=== PATIENT | female | born 1955 | race Caucasian/White ===

== ENCOUNTER → 2017-04-23 | Outpatient (CLI) | payer MEDICARE, OTHER ==
--- NOTE | 2017-04-23 10:17 | KCIC ---
MR of the left hip HISTORY: Chronic left hip pain. Instability. TECHNIQUE: Routine multiplanar sequences are obtained. FINDINGS: No bone lesion. No acute fracture. No evidence of femoral head osteonecrosis. No significant joint effusion. Mild left hip chondromalacia. Abnormal signal within the acetabular labrum, particularly superiorly, compatible with a degenerative tear. Minimal tendinosis signal in the left gluteus minimus tendon insertion. Left gluteus medius tendon intact Hamstring and iliopsoas attachment intact. Rectus femoris tendon attachment intact. No acute muscle pathology. Diagnostically limited large field of view coronal survey sequence demonstrates no acute findings of the contralateral hip. Incidentally noted is colonic diverticulosis. IMPRESSION: 1. Left hip labrum tear. 2. Mild left hip primary osteoarthritis. 3. Minimal left gluteus minimus tendinosis. Electronically signed by: Chilo Gomez MD (04/23/2017 10:13 AM)
== END | disposition home or self-care (01) ==
LOC: KCIC MRI 08:58
PROVIDERS: ATTEND Nurse Practitioner Family
DX: M16.12 Unilateral primary osteoarthritis, left hip (principal); M76.9 Unspecified enthesopathy, lower limb, excluding foot; S73.102A Unspecified sprain of left hip, initial encounter; X58.XXXA Exposure to other specified factors, initial encounter; Y93.89 Activity, other specified; Y92.89 Other specified places as the place of occurrence of the external cause; Y99.8 Other external cause status
CPT/HCPCS: 73721

== ENCOUNTER 2019-07-11 20:24 | Inpatient (IN) | payer MEDICAID, MEDICARE ==
[2019-07-11 20:30] VITALS: BP 167/83
[2019-07-11] MEDS ORDERED: IV NORMAL SALINE 1000ML BAG 1,000 ML IV SCH (22:30)
[2019-07-11] MEDS ORDERED: IOHEXOL 350 MG/ML 100 ML VIAL. IV ONE (23:15)
[2019-07-11] MEDS ORDERED: CONTRAST GIVEN. MC PRN (23:15)
[2019-07-11] MEDS ORDERED: EZET10TA20 PO (23:39)
[2019-07-11] MEDS ORDERED: GABA300C18 PO (23:39)
[2019-07-11] MEDS ORDERED: POTA8CAP19 PO (23:39)
[2019-07-11] MEDS ORDERED: ESTR1TAB15 PO (23:40)
[2019-07-11] MEDS ORDERED: ALEN70TA6 PO (23:40)
[2019-07-11 23:44] VITALS: BP 157/83
[2019-07-11] MEDS ORDERED: MELO7.5T29 PO (23:44)
[2019-07-11] MEDS ORDERED: HYDR-2765 PO (23:44)
[2019-07-11] MEDS ORDERED: CYCL10TA2 PO (23:44)
[2019-07-11] MEDS ORDERED: PRIM50TA24 PO (23:44)
[2019-07-11] MEDS ORDERED: LOSA-73 PO (23:44)
[2019-07-11] MEDS ORDERED: DIAZ5TAB4 PO (23:44)
[2019-07-11] MEDS ORDERED: PANT20TA2 PO (23:44)
[2019-07-11] MEDS ORDERED: LEVO100T5 PO (23:44)
[2019-07-11] MEDS ORDERED: HYDROcodone/APAP 7.5/325MG 1 TAB TABLET PO PRN (23:45)
[2019-07-11] MEDS ORDERED: diazePAM 5 MG TABLET PO PRN (23:45)
[2019-07-11] MEDS ORDERED: CYCLOBENZAPRINE 10 MG TABLET. PO PRN (23:45)
[2019-07-11] MEDS ORDERED: LATA2.5D3 OU (23:45)
--- NOTE | 2019-07-12 00:30 | RAD ---
EXAM: CT ANGIOGRAPHY HEAD AND NECK DATE: 07/11/2019 12:00 AM INDICATION: CVA/TIA TECHNIQUE: CTA angiogram of the head and neck was obtained after IV bolus administration of 75 cc of Omnipaque 350. The images were sent to workstation and multiplanar reconstructions were obtained. Multiplanar reconstruction images to include MIP and 3-D reconstruction images are submitted. One or more of the following dose reduction techniques were utilized: Automated exposure control (AEC), Adjustment of mA and/or kV according to patient size, Use of iterative reconstruction technique such as ASiR, CT scan done according to ALARA and image gently/image wisely COMPARISON: Noncontrast CT head done earlier same day. FINDINGS: CTA Head: Occlusion of the vertebrobasilar junction. There is collateral filling of the distal basilar artery via small P1 segments. Bilateral devulcanizer tender. The visualized distal internal carotid arteries, anterior and middle cerebral arteries are patent and normal caliber. The posterior cerebral arteries are patent and normal caliber. CTA Neck: Right carotid: The right common carotid artery is patent and normal caliber. Atherosclerosis of the carotid bifurcation. 50 percent stenosis of the right internal carotid artery per NASCET criteria. The right external carotid artery is patent. Left carotid: The left common carotid artery is patent and normal caliber. Atherosclerosis of the carotid bifurcation. 25 percent stenosis of the left internal carotid artery per NASCET criteria. The left external carotid artery is patent. Right vertebral: The cervical right vertebral artery is patent and normal caliber. Left vertebral: The cervical left vertebral artery is patent and normal caliber. The visualized portions of the aortic arch are normal. The origins of the brachiocephalic and subclavian arteries are normal. No cervical lymphadenopathy. The thyroid gland is normal. The parotid and submandibular glands are normal. The visualized aerodigestive tract is unremarkable. Mild multilevel degenerative disc height loss. Multilevel disc protrusions and marginal osteophytes results in multilevel spinal canal stenosis. Multilevel uncovertebral and facet arthrosis with multilevel neural foraminal narrowing. Centrilobular emphysema in the visualized lung apices. Right apical subpleural fibrosis. IMPRESSION: 1. Occlusion of the vertebrobasilar junction. There is some collateral filling of the distal basilar artery via diminutive P1 segments. Bilateral devulcanizer tender. 2. Atherosclerosis of the cervical internal carotid arteries with 50 percent stenosis on the right 25 percent stenosis on the left. Findings were called to the patient's nurse at 12:20 AM on 07/12/2019. FOR INTERNAL CODING PURPOSES RESULT CODE: (C) PQRS Compliance Statement - Stenosis calculations for CT, MR and conventional angiography are based upon measurement of the distal ICA diameter in accordance with the NASCET methodology. Electronically signed by: Farrukh Ty MD (07/12/2019 12:26 AM) [facility]
[2019-07-12] MEDS ORDERED: ACETAMINOPHEN 650 MG SUPP.RECT. PR PRN (01:30)
--- NOTE | 2019-07-12 01:40 | PDOC1 ---
History and Physical Date of Admission Date of Admission DATE: 07/12/19 TIME: 01:36 Identification/Chief Complaint Chief Complaint ACUTE CVA, TRANSFER FROM [facility] ADMIT TO [address] [place] [address] D/W DR HUSTON BY PHONE Past Medical History Cardiovascular: HTN Social History Smoke: <1 pack per day Drugs: None Current Medications Current Medications Current Medications Sodium Chloride 1,000 ml @ 80 mls/hr [id number] IV Last administered on 07/11/19at 23:55; Start 07/11/19 at 22:30 Aspirin (Wilma Aspirin) 325 mg DAILYWBKFT PO ; Start 07/12/19 at 08:00 Iohexol (Omnipaque 350 Mg/ml) 75 ml 1X ONCE IV Last administered on 07/11/19at 23:33; Start 07/11/19 at 23:15; Stop 07/11/19 at 23:16; Status DC Info (CONTRAST GIVEN -- Rx MONITORING) 1 each PRN DAILY PRN MC SEE COMMENTS; Start 07/11/19 at 23:15; Stop 07/13/19 at 23:14 Cyclobenzaprine HCl (Flexeril) 10 mg PRN TID PRN PO MUSCLE PAIN; Start 07/11/19 at 23:45 Diazepam (Valium) 5 mg PRN BID PRN PO ANXIETY / AGITATION; Start 07/11/19 at 23:45 Estradiol (Estrace) 1 mg DAILY PO ; Start 07/12/19 at 09:00 EZETIMIBE (Zetia) 10 mg DAILY PO ; Start 07/12/19 at 09:00 Gabapentin (Neurontin) 300 mg TID PO ; Start 07/12/19 at 09:00 Acetaminophen/ Hydrocodone Bitart (Lortab 7.5/325) 1 tab PRN Q8HRS PRN PO PAIN; Start 07/11/19 at 23:45 Latanoprost (Xalatan) 1 drop QHS OU ; Start 07/12/19 at 21:00 Losartan Potassium (Cozaar) 50 mg DAILY PO ; Start 07/12/19 at 09:00 Meloxicam (Mobic) 7.5 mg BID PO ; Start 07/12/19 at 09:00 Primidone (Mysoline) 100 mg TID PO ; Start 07/12/19 at 09:00 Non-Formulary Medication (Alendronate Sodium ) 1 tab WEEKLY PO ; Start 07/18/19 at 09:00; Status UNV Pantoprazole Sodium (Protonix) 40 mg DAILYAC PO ; Start 07/12/19 at 07:30 Levothyroxine Sodium (Synthroid) 100 mcg DAILY06 PO ; Start 07/12/19 at 06:00 Non-Formulary Medication (Potassium Chloride ) 8 meq TID PO ; Start 07/12/19 at 09:00; Status UNV Acetaminophen (Tylenol Supp) 650 mg PRN Q6HRS PRN [place] MILD PAIN / TEMP; Start 07/12/19 at 01:30; Status UNV Active Scripts Active Reported Latanoprost 2.5 Ml Drops 1 Drop OU QHS Levothyroxine Sodium 100 Mcg Tablet 1 Tab PO DAILY Meloxicam 7.5 Mg Tablet 7.5 Mg PO BID Cyclobenzaprine Hcl 10 Mg Tablet 1 Tab PO PRN TID PRN Diazepam 5 Mg Tablet 5 Mg PO PRN BID PRN Hydrocodone-Apap 7.5-325 (Hydrocodone Bit/Acetaminophen) 1 Tab Tablet 1 Tab PO PRN Q8HRS PRN Losartan Potassium 50 Mg Tablet 50 Mg PO DAILY Protonix (Pantoprazole Sodium) 20 Mg Tablet.dr 2 Tab PO DAILY Mysoline (Primidone) 50 Mg Tablet 100 Mg PO TID Alendronate Sodium 70 Mg Tablet 1 Tab PO WEEKLY Estradiol 1 Mg Tablet 1 Tab PO DAILY Gabapentin (Gabapentin) 300 Mg Capsule 300 Mg PO TID Zetia (Ezetimibe) 10 Mg Tablet 1 Tab PO DAILY Potassium Chloride 8 Meq Capsule.er 8 Meq PO TID Allergies Allergies: Coded Allergies: Beta-Blockers (Beta-Adrenergic Bloc (Verified Allergy, Intermediate, Unknown, 07/11/19) Penicillins (Verified Allergy, Intermediate, Unknown, 07/11/19) alprazolam (Verified Allergy, Intermediate, Unknown, 07/11/19) atorvastatin (Verified Allergy, Intermediate, Unknown, 07/11/19) fluticasone (Verified Allergy, Intermediate, 07/11/19) metoclopramide (Verified Allergy, Intermediate, Unknown, 07/11/19) orange juice (Verified Allergy, Intermediate, 07/11/19) propranolol (Verified Allergy, Intermediate, 07/11/19) rosuvastatin (Verified Allergy, Intermediate, 07/11/19) tramadol (Verified Allergy, Intermediate, 07/11/19) Vitals Vitals Vital Signs Date Time Temp Pulse Resp B/P (MAP) Pulse Ox O2 Delivery O2 Flow Rate FiO2 07/11/19 23:44 98.2 82 18 157/83 (107) 96 Room Air 98.2 Images Images PROCEDURE: CT ANGIOGRAPHY HEAD AND NECK EXAM: CT ANGIOGRAPHY HEAD AND NECK DATE: 07/11/2019 12:00 AM INDICATION: CVA/TIA TECHNIQUE: CTA angiogram of the head and neck was obtained after IV bolus administration of 75 cc of Omnipaque 350. The images were sent to workstation and multiplanar reconstructions were obtained. Multiplanar reconstruction images to include MIP and 3-D reconstruction images are submitted. One or more of the following dose reduction techniques were utilized: Automated exposure control (AEC), Adjustment of mA and/or kV according to patient size, Use of iterative reconstruction technique such as ASiR, CT scan done according to ALARA and image gently/image wisely COMPARISON: Noncontrast CT head done earlier same day. FINDINGS: CTA Head: Occlusion of the vertebrobasilar junction. There is collateral filling of the distal basilar artery via small P1 segments. Bilateral rivet thrower. The visualized distal internal carotid arteries, anterior and middle cerebral arteries are patent and normal caliber. The posterior cerebral arteries are patent and normal caliber. CTA Neck: Right carotid: The right common carotid artery is patent and normal caliber. Atherosclerosis of the carotid bifurcation. 50 percent stenosis of the right internal carotid artery per NASCET criteria. The right external carotid artery is patent. Left carotid: The left common carotid artery is patent and normal caliber. Atherosclerosis of the carotid bifurcation. 25 percent stenosis of the left internal carotid artery per NASCET criteria. The left external carotid artery is patent. Right vertebral: The cervical right vertebral artery is patent and normal caliber. Left vertebral: The cervical left vertebral artery is patent and normal caliber. The visualized portions of the aortic arch are normal. The origins of the brachiocephalic and subclavian arteries are normal. No cervical lymphadenopathy. The thyroid gland is normal. The parotid and submandibular glands are normal. The visualized aerodigestive tract is unremarkable. Mild multilevel degenerative disc height loss. Multilevel disc protrusions and marginal osteophytes results in multilevel spinal canal stenosis. Multilevel uncovertebral and facet arthrosis with multilevel neural foraminal narrowing. Centrilobular emphysema in the visualized lung apices. Right apical subpleural fibrosis. IMPRESSION: 1. Occlusion of the vertebrobasilar junction. There is some collateral filling of the distal basilar artery via diminutive P1 segments. Bilateral rivet thrower. 2. Atherosclerosis of the cervical internal carotid arteries with 50 percent stenosis on the right 25 percent stenosis on the left. Findings were called to the patient's nurse at 12:20 AM on 07/12/2019. FOR INTERNAL CODING PURPOSES RESULT CODE: (C) PQRS Compliance Statement - Stenosis calculations for CT, MR and conventional angiography are based upon measurement of the distal ICA diameter in accordance with the NASCET methodology. Electronically signed by: Lyle Ty MD (07/12/2019 12:26 AM) [facility] DICTATED and SIGNED BY: LYLE TY MD DATE: 07/12/19 0026 VTE Prophylaxis Ordered VTE Prophylaxis Devices: No VTE Pharmacological Prophylaxi: Yes Assessment/Plan Assessment/Plan IMPRESSION: CTA 1. Occlusion of the vertebrobasilar junction. There is some collateral filling of the distal basilar artery via diminutive P1 segments. Bilateral rivet thrower. 2. Atherosclerosis of the cervical internal carotid arteries with 50 percent stenosis on the right 25 percent stenosis on the left. 3. HYPERTENSION 4. COPD PLAN EMERGENT TRANSFER TO [facility] NOW PER DR PENNY UPLOAD FILMS TO CLOUD ACCEPTING NEUROLOGIST IS DR MARTINEZ D/W FLOOR NURSE AT 2 AM Level of consciousness * Alert Ask patient the month and their age * Answers both correctly Ask patient to open and close their eyes * Obeys both correctly Best gaze (horizontal eye movement only) * Normal Visual field testing * No visual field loss Facial paresis (ask to show teeth/raise eyebrows/close eyes) * Minor paralysis Limb ataxia * Present in one limb Sensory (use pinprick to test arms/legs/truck and face) * Mild decreased sensation Best language (describe picture, name items, read sentences) * No aphasia Dysarthria * Normal articulation Extinction and inattention * Normal Left arm motor function * No effort agnst gravity Right arm motor function * Normal Left leg motor function * No effort agnst gravity Right leg motor function * Normal Total NIHSS Score * 9 MD Notified * Yes Name of MD notified * DR. PENNY Initiate Stroke Education * Yes RACHELL JUNG MD Jul 12, 2019 01:40
--- NOTE | 2019-07-12 03:00 | NUR ---
Received pt at 2014 via ems from [place], pt laying in bed, families at bedside, noticed facial drooping on the left side, and L sided weakness, called admitting dept and notified Dr. Arriaga regarding pt's arrival, received order to do MRI and MRA of the head stat at 2053 and placed consult neuro. Called Neurologist and talked to Dr. Olivares, received order to transfer pt to med when results came back with any blockages. Ct/MRI staff called this nurse and asked Dr. Olivares's number to ask if they can do MRI in the morning, [facility] called me back and told me that Dr. Olivares agreed to do CTA head and neck stat and MRI brain in AM. 6 ordered CTA placed by Catie, CTA head and neck done at 0000, received result at 0020 via phone call, called die casting supervisor notified the need to transfer pt to , called transferring service around 0030, called Dr. Olivares and Dr. Arriaga at around 0045. Received bed # from at 0154, gave report to nurse Sunni at 0157. Called EMS and transferred pt at 0230.
[2019-07-12] MEDS ORDERED: LEVOTHYROXINE 100 MCG TABLET PO SCH (06:00)
[2019-07-12] MEDS ORDERED: PANTOPRAZOLE 40 MG TABLET.DR. PO SCH (07:30)
[2019-07-12] MEDS ORDERED: ASPIRIN 325 MG TABLET PO SCH (08:00)
[2019-07-12] MEDS ORDERED: LOSARTAN POTASSIUM 50 MG TABLET. PO SCH (09:00)
[2019-07-12] MEDS ORDERED: GABAPENTIN 300 MG CAPSULE. PO SCH (09:00)
[2019-07-12] MEDS ORDERED: EZETIMIBE 10 MG TABLET. PO SCH (09:00)
[2019-07-12] MEDS ORDERED: MELOXICAM 7.5 MG TABLET PO SCH (09:00)
[2019-07-12] MEDS ORDERED: PRIMIDONE 50 MG TABLET PO SCH (09:00)
[2019-07-12] MEDS ORDERED: ESTRADIOL 1 MG TABLET. PO SCH (09:00)
[2019-07-12] MEDS ORDERED: POTASSIUM CHLORIDE 8 MEQ PO SCH (09:00)
[2019-07-12] MEDS ORDERED: LATANOPROST 0.005% OPHTH SOLUTION 2.5ML BOTTLE. OU SCH (21:00)
--- NOTE | 2019-07-17 15:31 | PDOC3 ---
Discharge Summary Date of Admission: Jul 12, 2019 Date of Discharge: Jul 12, 2019 Follow-Up: 1-2 days, By telephone Admitting Diagnosis comment: VTE Prophylaxis Ordered VTE Prophylaxis Devices: No VTE Pharmacological Prophylaxi: Yes discharge dx Assessment/Plan IMPRESSION: CTA 1. Occlusion of the vertebrobasilar junction. There is some collateral filling of the distal basilar artery via diminutive P1 segments. Bilateral cashier associate. 2. Atherosclerosis of the cervical internal carotid arteries with 50 percent stenosis on the right 25 percent stenosis on the left. 3. HYPERTENSION 4. COPD PLAN EMERGENT TRANSFER TO [facility] NOW PER DR PENNY UPLOAD FILMS TO CLOUD ACCEPTING NEUROLOGIST IS DR MARTINEZ discussed with her by phone D/W FLOOR NURSE AT 2 AM Level of consciousness * Alert Ask patient the month and their age * Answers both correctly Ask patient to open and close their eyes * Obeys both correctly Best gaze (horizontal eye movement only) * Normal Visual field testing * No visual field loss Facial paresis (ask to show teeth/raise eyebrows/close eyes) * Minor paralysis Limb ataxia * Present in one limb Sensory (use pinprick to test arms/legs/truck and face) * Mild decreased sensation Best language (describe picture, name items, read sentences) * No aphasia Dysarthria * Normal articulation Extinction and inattention * Normal Left arm motor function * No effort agnst gravity Right arm motor function * Normal Left leg motor function * No effort agnst gravity Right leg motor function * Normal Total NIHSS Score * 9 MD Notified * Yes Name of MD notified * DR. PENNY Initiate Stroke Education * Yes Brief Hospital Course Ms. Pope is a 63 old [sex] who presented with [ ] CONDITION AT DISCHARGE: Comment (to [facility]) Discharge Medications Current Medications Sodium Chloride 1,000 ml @ 80 mls/hr [id number] IV Last administered on 07/11/19at 23:55; Start 07/11/19 at 22:30; Stop 07/12/19 at 05:09; Status DC Aspirin (Wilma Aspirin) 325 mg DAILYWBKFT PO ; Start 07/12/19 at 08:00; Stop 07/12/19 at 05:09; Status DC Iohexol (Omnipaque 350 Mg/ml) 75 ml 1X ONCE IV Last administered on 07/11/19at 23:33; Start 07/11/19 at 23:15; Stop 07/11/19 at 23:16; Status DC Info (CONTRAST GIVEN -- Rx MONITORING) 1 each PRN DAILY PRN MC SEE COMMENTS; Start 07/11/19 at 23:15; Stop 07/12/19 at 05:09; Status DC Cyclobenzaprine HCl (Flexeril) 10 mg PRN TID PRN PO MUSCLE PAIN; Start 07/11/19 at 23:45; Stop 07/12/19 at 05:09; Status DC Diazepam (Valium) 5 mg PRN BID PRN PO ANXIETY / AGITATION; Start 07/11/19 at 23:45; Stop 07/12/19 at 05:09; Status DC Estradiol (Estrace) 1 mg DAILY PO ; Start 07/12/19 at 09:00; Stop 07/12/19 at 01:40; Status DC EZETIMIBE (Zetia) 10 mg DAILY PO ; Start 07/12/19 at 09:00; Stop 07/12/19 at 05:0 9; Status DC Gabapentin (Neurontin) 300 mg TID PO ; Start 07/12/19 at 09:00; Stop 07/12/19 at 05:09; Status DC Acetaminophen/ Hydrocodone Bitart (Lortab 7.5/325) 1 tab PRN Q8HRS PRN PO PAIN; Start 07/11/19 at 23:45; Stop 07/12/19 at 05:09; Status DC Latanoprost (Xalatan) 1 drop QHS OU ; Start 07/12/19 at 21:00; Stop 07/12/19 at 05:09; Status DC Losartan Potassium (Cozaar) 50 mg DAILY PO ; Start 07/12/19 at 09:00; Stop 07/12/19 at 05:09; Status DC Meloxicam (Mobic) 7.5 mg BID PO ; Start 07/12/19 at 09:00; Stop 07/12/19 at 05:09; Status DC Primidone (Mysoline) 100 mg TID PO ; Start 07/12/19 at 09:00; Stop 07/12/19 at 05:09; Status DC Non-Formulary Medication (Alendronate Sodium ) 1 tab WEEKLY PO ; Start 07/18/19 at 09:00; Status UNV Pantoprazole Sodium (Protonix) 40 mg DAILYAC PO ; Start 07/12/19 at 07:30; Stop 07/12/19 at 05:09; Status DC Levothyroxine Sodium (Synthroid) 100 mcg DAILY06 PO ; Start 07/12/19 at 06:00; Stop 07/12/19 at 05:09; Status DC Non-Formulary Medication (Potassium Chloride ) 8 meq TID PO ; Start 07/12/19 at 09:00; Stop 07/12/19 at 05:09; Status DC Acetaminophen (Tylenol Supp) 650 mg PRN Q6HRS PRN [place] MILD PAIN / TEMP; Start 07/12/19 at 01:30; Stop 07/12/19 at 05:09; Status DC Active Scripts Active Reported Latanoprost 2.5 Ml Drops 1 Drop OU QHS Levothyroxine Sodium 100 Mcg Tablet 1 Tab PO DAILY Meloxicam 7.5 Mg Tablet 7.5 Mg PO BID Cyclobenzaprine Hcl 10 Mg Tablet 1 Tab PO PRN TID PRN Diazepam 5 Mg Tablet 5 Mg PO PRN BID PRN Hydrocodone-Apap 7.5-325 (Hydrocodone Bit/Acetaminophen) 1 Tab Tablet 1 Tab PO PRN Q8HRS PRN Losartan Potassium 50 Mg Tablet 50 Mg PO DAILY Protonix (Pantoprazole Sodium) 20 Mg Tablet.dr 2 Tab PO DAILY Mysoline (Primidone) 50 Mg Tablet 100 Mg PO TID Alendronate Sodium 70 Mg Tablet 1 Tab PO WEEKLY Estradiol 1 Mg Tablet 1 Tab PO DAILY Gabapentin (Gabapentin) 300 Mg Capsule 300 Mg PO TID Zetia (Ezetimibe) 10 Mg Tablet 1 Tab PO DAILY Potassium Chloride 8 Meq Capsule.er 8 Meq PO TID Allergies Allergies Coded Allergies Type Severity Reaction Last Updated Verified Beta-Blockers (Beta-Adrenergic Bloc Allergy Intermediate Unknown 07/11/19 Yes Penicillins Allergy Intermediate Unknown 07/11/19 Yes alprazolam Allergy Intermediate Unknown 07/11/19 Yes atorvastatin Allergy Intermediate Unknown 07/11/19 Yes fluticasone Allergy Intermediate 07/11/19 Yes metoclopramide Allergy Intermediate Unknown 07/11/19 Yes orange juice Allergy Intermediate 07/11/19 Yes propranolol Allergy Intermediate 07/11/19 Yes rosuvastatin Allergy Intermediate 07/11/19 Yes tramadol Allergy Intermediate 07/11/19 Yes Disposition/Orders: Other (transfer to [facility] by ambulance, code stroke on arrival to [facility]) RACHELL JUNG MD Jul 17, 2019 15:31
[2019-07-18] MEDS ORDERED: NON FORMULARY ITEM (Alendronate Sodium 1 TAB) PO SCH (09:00)
== END 2019-07-12 02:30 | disposition short-term general hospital (02) | DRG 66 ==
LOC: 6 SOUTH 20:24
PROVIDERS: ADMIT Family Medicine; ATTEND Family Medicine
DX: I63.9 Cerebral infarction, unspecified (principal); J44.9 Chronic obstructive pulmonary disease, unspecified; I10 Essential (primary) hypertension; I65.03 Occlusion and stenosis of bilateral vertebral arteries; F17.210 Nicotine dependence, cigarettes, uncomplicated; Z88.0 Allergy status to penicillin; Z88.8 Allergy status to other drugs, medicaments and biological substances; Z91.018 Allergy to other foods; Z91.048 Other nonmedicinal substance allergy status; Z79.899 Other long term (current) drug therapy
CPT/HCPCS: 70496; 70498; J7030; Q9967; G0378

== ENCOUNTER → 2021-04-12 | Day surgery (SDC) | payer MEDICARE, MEDICAID ==
[~2021-04-12] VITALS: Ht 157.5 cm; Wt 65.0 kg
[~2021-04-12] MED LIST: ALEN70TA71 PO; CYCL10TA2 PO; DIAZ5TAB4 PO; ESTR-113 PO; EZET10TA20 PO; GABA300C18 PO; GLYCOPYRROLATE 1 MG/5 ML VIAL. ONE; HYDR-2765 PO; HYDROmorphone 2 MG/ML VIAL IVP PRN; IV RINGERS,LACTATED 1000ML 1,000 ML IV SCH; LATA2.5D3 OU; LEVO100T5 PO; LIDOCAINE 2% PF 5 ML VIAL. ONE; LOSA-73 PO; MELO7.5T29 PO; MORPHINE SULFATE 2 MG/ML VIAL. IVP PRN; PANT20TA2 PO; POTA8CAP19 PO; PRIM50TA24 PO; PROCHLORPERAZINE 10 MG/2 ML VIAL. IVP PRN; PROPOFOL 10 MG/ML (20ML) VIAL. IV ONE; ePHEDrine PF IN SALINE 50 MG/10 ML SYRINGE. IV ONE; fentaNYL PF VIAL 100 MCG/2 ML VIAL IVP PRN
[2021-04-12 07:22] VITALS: BP 135/76
[2021-04-12 08:25] VITALS: BP 121/73
== END | disposition home or self-care (01) ==
LOC: SURG 06:54
PROVIDERS: ATTEND Internal Medicine Gastroenterology
DX: R10.13 Epigastric pain (principal); R11.2 Nausea with vomiting, unspecified; K31.89 Other diseases of stomach and duodenum; I10 Essential (primary) hypertension; E78.00 Pure hypercholesterolemia, unspecified; J43.9 Emphysema, unspecified; M19.90 Unspecified osteoarthritis, unspecified site; E03.9 Hypothyroidism, unspecified; F41.9 Anxiety disorder, unspecified; F32.9 Major depressive disorder, single episode, unspecified; Z90.710 Acquired absence of both cervix and uterus; Z98.890 Other specified postprocedural states; Z79.899 Other long term (current) drug therapy; Z87.891 Personal history of nicotine dependence; Z88.1 Allergy status to other antibiotic agents; Z88.8 Allergy status to other drugs, medicaments and biological substances; Z20.822 Contact with and (suspected) exposure to COVID-19
CPT/HCPCS: 43235; 43450; 87426; J2704; J3490